=== PATIENT | female | born 1975 | race Caucasian/White ===

== ENCOUNTER 2017-08-29 13:43 | Outpatient (CLI) | payer OTHER ==
[2017-08-29 14:04] LABS: BASOPHILS % 0.3 (0.0-1.5); EOSINOPHILS % 1.7 % (0.0-6.8); MEAN CORPUSCULAR HEMOGLOBIN 32.7 pg (28.0-34.0); MEAN CORPUSCULAR VOLUME 95.1 fl (80.0-100.0); MONOCYTES % 3.7 % (0.0-11.0); NEUTROPHILS # 4.4 # k/uL (1.4-7.7)
--- NOTE | 2017-08-29 15:27 | Diagnostic Imaging Report ---
PAULO ROBERT [facility] [address] [facility].[address] [address] Report Submission Date: Aug 29, 2017 2:39:15 PM SALES REPRESENTATIVE PUBLICATIONS Patient Study Name: KAY RUIZ Date: Aug 29, 2017 2:25:15 PM SALES REPRESENTATIVE PUBLICATIONS Modality Type: CR Gender: F Description: SPINE : 73 Institution: [facility] Physician: PAULO ROBERT Examination: Cervical spine History: Discomfort Comparison exams: None available Findings: 3 views of the cervical spine demonstrate normal height and alignment. No anterior compression. No abnormal listhesis. Few scattered osteophytes. Mid cervical disc space narrowing. No odontoid abnormality. No prevertebral abnormality Impression: Degenerative changes. No acute appearing osseous abnormality. Electronically signed on Aug 29, 2017 2:39:15 PM SALES REPRESENTATIVE PUBLICATIONS by: Randolph DENNEY
--- NOTE | 2017-08-29 15:28 | Diagnostic Imaging Report ---
PAULO ROBERT [facility] [address] [facility] [address] [place], [place]. [address] Report Submission Date: Aug 29, 2017 3:25:08 PM TURN DOWN WORKER Patient Study Name: KAY RUIZ Date: Aug 29, 2017 3:03:18 PM TURN DOWN WORKER Modality Type: CT\SR Gender: F Description: CT C-SPINE W/O CONTRAS : 73 Institution: [facility] Physician: PAULO ROBERT Examination: CT cervical spine History: Neck discomfort. Comparison exams: Plain film dated 29 August 2017 Technique: CT cervical spine axial imaging with sagittal and coronal reconstruction Findings: Sagittal reconstruction demonstrates normal height and alignment the cervical vertebral bodies. No anterior compression deformity. Few ossific spurs at C4/5/6. Associated disc space narrowing. Coronal reconstruction does not demonstrate locked or perched facets. No atlantoaxial abnormality. Axial imaging obtained from the skull base through T1 Lamina and pedicles are intact. No ossific density within the central canal. Mild mid cervical facet degenerative changes. No prevertebral soft tissue abnormality. Impression: Mild mid cervical degenerative changes. No evidence for vertebral body compression fracture. If patient iss experiencing neurologic symptoms, consider obtaining MRI. Electronically signed on Aug 29, 2017 3:25:08 PM TURN DOWN WORKER by: Randolph DENNEY
== END 2017-08-29 13:44 ==
LOC: LAB 13:43
PROVIDERS: ATTEND Family Medicine
DX: M54.2 Cervicalgia (principal)
CPT/HCPCS: 36415; 72040; 72125; 85025